=== PATIENT | female | born 1955 | race Caucasian/White ===

== ENCOUNTER 2023-02-17 13:05 | Emergency (ER) | payer MEDICARE, OTHER ==
[~2023-02-17] VITALS: Ht 167.6 cm; Wt 76.2 kg
[2023-02-17 13:37] VITALS: BP 102/64
[2023-02-17] MEDS ORDERED: LEVSOD100 PO (14:32)
[2023-02-17] MEDS ORDERED: Norco 5-325 Ta1 EACH PO (14:55)
== END 2023-02-17 15:01 | disposition home or self-care (01) ==
LOC: ER 13:05
DX: R07.81 Pleurodynia (principal); W18.09XA Striking against other object with subsequent fall, initial encounter; Z91.040 Latex allergy status; Z88.2 Allergy status to sulfonamides
CPT/HCPCS: 71046; 73080; 99283-25; A9270

== ENCOUNTER → 2023-08-24 | Outpatient (CLI) | payer OTHER ==
[~2023-08-24] MED LIST: LEVSOD100 PO; Norco 5-325 Ta1 EACH PO
== END | disposition home or self-care (01) ==
LOC: LAB SHORT 14:15 → LAB 14:15
DX: N39.0 Urinary tract infection, site not specified (principal)
CPT/HCPCS: 87077; 87086; 87186